=== PATIENT | male | born 1995 | race Caucasian/White ===

== ENCOUNTER 2019-12-27 11:08 | Emergency (ER) | payer OTHER, SELFPAY ==
[~2019-12-27] VITALS: Ht 172.7 cm; Wt 113.4 kg
[2019-12-27 11:34] VITALS: Ht 172.7 cm; Wt 113.4 kg
[2019-12-27 14:42] VITALS: BP 115/62
== END 2019-12-27 14:42 | disposition home or self-care (01) ==
LOC: ED 11:08
DX: U07.1 COVID-19 (principal); J12.89 Other viral pneumonia
CPT/HCPCS: Q0092; U0003-CS